=== PATIENT | male | born 1955 | race Caucasian/White ===

== ENCOUNTER 2023-10-23 13:13 | Emergency (ER) | payer OTHER ==
[2023-10-23 14:10] LABS: BASOPHILS PERCENT AUTO 0.5 % (0.0-1.0); EOSINOPHILS ABSOLUTE AUTO 0.1 K/mm3 (0.0-0.4); EOSINOPHILS PERCENT AUTO 0.9 % (0.0-6.0); HEMATOCRIT 48.5 % (42.0-52.0); HEMOGLOBIN 16.5 gm/dl (14.0-18.0); IMMATURE GRAN ABSOLUTE AUTO 0.08 K/mm3 (0.00-0.05); IMMATURE GRAN PERCENT AUTO 1.1 % (0.0-0.4); LYMPHOCYTES ABSOLUTE AUTO 1.1 K/mm3 (1.0-4.8); LYMPHOCYTES PERCENT AUTO 14.4 % (24.0-44.0); MEAN CORPUSCULAR HEMOGLOBIN 29.7 pg (28.0-32.0); MEAN CORPUSCULAR VOLUME 87.2 fl (83.0-99.0); MEAN PLATELET VOLUME 9.2 fl (9.4-12.4); MONOCYTES ABSOLUTE AUTO 0.3 K/mm3 (0.0-0.8); MONOCYTES PERCENT AUTO 4.1 % (0.0-8.0); PLATELET COUNT,PLT 160 K/mm3 (150-400); RED BLOOD CELL COUNT 5.56 M/mm3 (4.52-5.90); WHITE BLOOD CELL COUNT,WBC 7.56 K/mm3 (3.9-11.3)
[2023-10-23 14:50] LABS: A/G RATIO 0.9 (1-2); ALBUMIN 3.5 g/dl (3.4-5.0); BILIRUBIN TOTAL 0.8 mg/dL (0.2-1.0); C-REACTIVE PROTEIN 0.17 mg/dL (<0.30); CREATININE 1.2 mg/dL (0.7-1.3); EST CRCL DRUG DOSING (CG) 71.39 mL/min; MAGNESIUM 1.9 mg/dL (1.8-2.4); PROTEIN TOTAL,TP 7.6 g/dl (6.4-8.2)
== END 2023-10-23 15:20 | disposition home or self-care (01) ==
LOC: JD.ED 13:13
DX: R06.02 Shortness of breath (principal); E11.65 Type 2 diabetes mellitus with hyperglycemia; I10 Essential (primary) hypertension; Z79.4 Long term (current) use of insulin
CPT/HCPCS: 36415; 71046; 71046-26; 80053; 83735; 83880; 84484; 85025; 85379; 86140; 93005; 93010; 99284; 99285

== ENCOUNTER 2023-10-25 20:05 | Emergency (ER) | payer OTHER ==
[2023-10-25] MEDS ORDERED: Sodium Chloride 0.9% 10 ML Syringe FLUSH PRN (20:34)
[2023-10-25 21:01] LABS: BASOPHILS ABSOLUTE AUTO 0.1 K/mm3 (0.0-0.2); BASOPHILS PERCENT AUTO 0.8 % (0.0-1.0); EOSINOPHILS ABSOLUTE AUTO 0.2 K/mm3 (0.0-0.4); EOSINOPHILS PERCENT AUTO 2.3 % (0.0-6.0); HEMATOCRIT 44.2 % (42.0-52.0); HEMOGLOBIN 15.2 gm/dl (14.0-18.0); IMMATURE GRAN ABSOLUTE AUTO 0.07 K/mm3 (0.00-0.05); IMMATURE GRAN PERCENT AUTO 0.9 % (0.0-0.4); LYMPHOCYTES PERCENT AUTO 25.8 % (24.0-44.0); MEAN CORPUSCULAR HEMOGLOBIN 29.9 pg (28.0-32.0); MEAN CORPUSCULAR HGB CONC 34.4 g/dl (32.0-36.0); MONOCYTES ABSOLUTE AUTO 0.6 K/mm3 (0.0-0.8); MONOCYTES PERCENT AUTO 7.5 % (0.0-8.0); NEUTROPHILS ABSOLUTE AUTO 4.9 K/mm3 (1.8-7.7); NEUTROPHILS PERCENT AUTO 62.7 % (41.0-71.0); PLATELET COUNT,PLT 158 K/mm3 (150-400); RED BLOOD CELL COUNT 5.08 M/mm3 (4.52-5.90); WHITE BLOOD CELL COUNT,WBC 7.86 K/mm3 (3.9-11.3)
[2023-10-25] MEDS: LORazepam 2 MG/ML SDV IVPUSH ONE ×2 (21:21→22:31)
[2023-10-25 21:29] LABS: A/G RATIO 0.8 (1-2); ALBUMIN 3.1 g/dl (3.4-5.0); ANION GAP 13.7 (5-15); BILIRUBIN TOTAL 0.6 mg/dL (0.2-1.0); BUN/CREATININE RATIO 22.7 (14-18); C-REACTIVE PROTEIN 0.35 mg/dL (<0.30); CALCIUM 8.8 mg/dL (8.5-10.1); CREATININE 1.1 mg/dL (0.7-1.3); EST CRCL DRUG DOSING (CG) 80.01 mL/min; POTASSIUM,K 4.7 mEq/L (3.5-5.1)
[2023-10-25] MEDS: Iopamidol 755 Mg/ML 100 ML Bottle IVPUSH ONE (22:33)
[2023-10-25] MEDS: Sodium Chloride 0.9% 10 ML Syringe FLUSH PRN (22:35)
[2023-10-25] MEDS ORDERED: Sodium Chloride 0.9% 100 ML IV SCH (22:45)
[2023-10-25] MEDS: Cephalexin 500 MG Cap PO ONE (23:54)
== END 2023-10-25 23:59 ==
LOC: JD.ED 20:05
DX: F41.9 Anxiety disorder, unspecified (principal); R06.02 Shortness of breath; L03.032 Cellulitis of left toe; E11.65 Type 2 diabetes mellitus with hyperglycemia; F17.210 Nicotine dependence, cigarettes, uncomplicated; I25.2 Old myocardial infarction; I10 Essential (primary) hypertension; E78.00 Pure hypercholesterolemia, unspecified; E66.9 Obesity, unspecified; Z79.4 Long term (current) use of insulin; Z91.048 Other nonmedicinal substance allergy status; Z95.5 Presence of coronary angioplasty implant and graft; Z79.899 Other long term (current) drug therapy; Z68.33 Body mass index [BMI] 33.0-33.9, adult
CPT/HCPCS: 36415; 71275; 73630; 80053; 83735; 83880; 84484; 85025; 86140; 93005; 96374; 96376; 99285; A9270; J2060; J3490; Q9967

== ENCOUNTER 2023-11-02 01:34 | Emergency (ER) | payer OTHER ==
[2023-11-02 02:20] LABS: BASOPHILS ABSOLUTE AUTO 0.1 K/mm3 (0.0-0.2); BASOPHILS PERCENT AUTO 0.6 % (0.0-1.0); EOSINOPHILS ABSOLUTE AUTO 0.2 K/mm3 (0.0-0.4); EOSINOPHILS PERCENT AUTO 2.8 % (0.0-6.0); HEMATOCRIT 46.9 % (42.0-52.0); HEMOGLOBIN 15.8 gm/dl (14.0-18.0); IMMATURE GRAN ABSOLUTE AUTO 0.04 K/mm3 (0.00-0.05); IMMATURE GRAN PERCENT AUTO 0.5 % (0.0-0.4); LYMPHOCYTES PERCENT AUTO 24.7 % (24.0-44.0); MEAN CORPUSCULAR HEMOGLOBIN 29.2 pg (28.0-32.0); MEAN CORPUSCULAR HGB CONC 33.7 g/dl (32.0-36.0); MEAN CORPUSCULAR VOLUME 86.5 fl (83.0-99.0); MEAN PLATELET VOLUME 8.7 fl (9.4-12.4); MONOCYTES ABSOLUTE AUTO 0.5 K/mm3 (0.0-0.8); MONOCYTES PERCENT AUTO 6.3 % (0.0-8.0); NEUTROPHILS ABSOLUTE AUTO 5.2 K/mm3 (1.8-7.7); NEUTROPHILS PERCENT AUTO 65.1 % (41.0-71.0); PLATELET COUNT,PLT 158 K/mm3 (150-400); RED BLOOD CELL COUNT 5.42 M/mm3 (4.52-5.90); WHITE BLOOD CELL COUNT,WBC 7.99 K/mm3 (3.9-11.3)
[2023-11-02 02:37] LABS: APPEARANCE,URINE CLEAR (Clear); BILIRUBIN,URINE NEGATIVE (Negative); COLOR,URINE YELLOW (Yellow); GLUCOSE,URINE 2+ (Negative); KETONES,URINE TRACE (Negative); LEUKOCYTE ESTERASE,URINE NEGATIVE (Negative); NITRITE,URINE NEGATIVE (Negative); OCCULT BLOOD,URINE NEGATIVE (Negative); PH,URINE 5.5 (5.0-8.0); PROTEIN,URINE 1+ (Negative); UROBILINOGEN,URINE 0.2 (0.2-1.0)
[2023-11-02 02:48] LABS: BACTERIA,URINE RARE /hpf (FEW); EPITHELIAL CELLS,URINE 0-5 /hpf (0-5); HYALINE CASTS,URINE 0-5 /lpf (0-5); MUCUS,URINE FEW /hpf (FEW); RBC,URINE 0-5 /hpf (0-5); WBC,URINE 0-5 /hpf (0-5)
[2023-11-02 02:49] LABS: BARBITURATE SCREEN,URINE NEGATIVE (CUTOFF=200); BENZODIAZEPINES SCREEN,URINE PRESUMPTIVE POSITIVE (CUTOFF=150); BUPRENORPHINE SCREEN,URINE NEGATIVE (CUTOFF=10); METHADONE SCREEN, URINE NEGATIVE (CUT0FF=200); METHAMPHETAMINES SCREEN, URINE NEGATIVE (CUTOFF=500); OXYCODONE SCREEN,URINE NEGATIVE (CUT0FF=100); THC SCREEN,URINE 20 NG/ML NEGATIVE (CUTOFF=50)
[2023-11-02 02:50] LABS: A/G RATIO 0.8 (1-2); ALBUMIN 3.6 g/dl (3.4-5.0); ANION GAP 12.9 (5-15); BILIRUBIN TOTAL 0.8 mg/dL (0.2-1.0); BUN/CREATININE RATIO 17.3 (14-18); CALCIUM 9.2 mg/dL (8.5-10.1); CREATININE 1.1 mg/dL (0.7-1.3); EST CRCL DRUG DOSING (CG) 69.41 mL/min; MAGNESIUM 1.8 mg/dL (1.8-2.4); POTASSIUM,K 3.9 mEq/L (3.5-5.1); TSH 2.56 uIU/mL (0.358-3.74)
[2023-11-02 02:51] LABS: AMPHETAMINES SCREEN, URINE NEGATIVE (CUTOFF=500)
== END 2023-11-02 03:54 | disposition home or self-care (01) ==
LOC: JD.ED 01:34
DX: J96.01 Acute respiratory failure with hypoxia (principal); F41.9 Anxiety disorder, unspecified; I10 Essential (primary) hypertension; I25.2 Old myocardial infarction; Z95.5 Presence of coronary angioplasty implant and graft; E78.00 Pure hypercholesterolemia, unspecified; E10.9 Type 1 diabetes mellitus without complications; Z91.048 Other nonmedicinal substance allergy status; Z79.4 Long term (current) use of insulin; Z79.899 Other long term (current) drug therapy; Z79.82 Long term (current) use of aspirin
CPT/HCPCS: 36415; 71045; 71045-26; 80053; 80306; 81001; 83735; 84443; 85025; 93005; 99284

== ENCOUNTER 2023-11-03 13:42 | Emergency (ER) | payer OTHER ==
[2023-11-03] MEDS ORDERED: Sodium Chloride 0.9% 10 ML Syringe FLUSH PRN (13:51)
[2023-11-03] MEDS: LORazepam 2 MG/ML SDV IVPUSH ONE ×2 (13:56)
[2023-11-03 14:01] LABS: BASOPHILS PERCENT AUTO 0.5 % (0.0-1.0); EOSINOPHILS ABSOLUTE AUTO 0.2 K/mm3 (0.0-0.4); EOSINOPHILS PERCENT AUTO 2.9 % (0.0-6.0); HEMATOCRIT 46.1 % (42.0-52.0); HEMOGLOBIN 16.2 gm/dl (14.0-18.0); IMMATURE GRAN ABSOLUTE AUTO 0.03 K/mm3 (0.00-0.05); IMMATURE GRAN PERCENT AUTO 0.4 % (0.0-0.4); LYMPHOCYTES ABSOLUTE AUTO 1.6 K/mm3 (1.0-4.8); LYMPHOCYTES PERCENT AUTO 21.9 % (24.0-44.0); MEAN CORPUSCULAR HEMOGLOBIN 30.2 pg (28.0-32.0); MEAN CORPUSCULAR HGB CONC 35.1 g/dl (32.0-36.0); MONOCYTES ABSOLUTE AUTO 0.5 K/mm3 (0.0-0.8); MONOCYTES PERCENT AUTO 7.1 % (0.0-8.0); NEUTROPHILS ABSOLUTE AUTO 4.9 K/mm3 (1.8-7.7); NEUTROPHILS PERCENT AUTO 67.2 % (41.0-71.0); PLATELET COUNT,PLT 186 K/mm3 (150-400); RED BLOOD CELL COUNT 5.36 M/mm3 (4.52-5.90); WHITE BLOOD CELL COUNT,WBC 7.32 K/mm3 (3.9-11.3)
[2023-11-03 14:29] LABS: LACTIC ACID 2.5 mmol/L (0.4-2.0)
[2023-11-03 14:35] LABS: A/G RATIO 0.7 (1-2); ALBUMIN 3.4 g/dl (3.4-5.0); ANION GAP 16.7 (5-15); BILIRUBIN TOTAL 0.7 mg/dL (0.2-1.0); BUN/CREATININE RATIO 18.2 (14-18); C-REACTIVE PROTEIN 1.14 mg/dL (<0.30); CALCIUM 9.2 mg/dL (8.5-10.1); CREATININE 1.1 mg/dL (0.7-1.3); EST CRCL DRUG DOSING (CG) 77.89 mL/min; POTASSIUM,K 4.7 mEq/L (3.5-5.1)
[2023-11-03] MEDS: Sodium Chloride 0.9% 500 ML IV ONE (15:45)
[2023-11-03] MEDS: VANCOmycin 2 GM/400 ML 2 GM in Premix Bag 1 BAG IV SCH (15:50)
[2023-11-03] MEDS: Insulin Regular, Human 100 Units/ML 3 ML Vial SUBCUT ONE (17:27)
[2023-11-03 17:31] LABS: HEMOGLOBIN A1C 9.7 %
[2023-11-03 17:47] LABS: BICARBONATE,ARTERIAL 23.9 meq/L (22.0-26.0); O2 SATURATION ARTERIAL 93.6 % (96.0-97.0); PCO2 ARTERIAL 43.2 mmHg (35.0-45.0)
[2023-11-03] MEDS: cefTRIAXone 1 GM in Sodium Chloride 0.9% 100 ML IV ONE (17:49)
[2023-11-03 18:50] LABS: APPEARANCE,URINE CLEAR (Clear); BILIRUBIN,URINE NEGATIVE (Negative); COLOR,URINE YELLOW (Yellow); GLUCOSE,URINE 2+ (Negative); KETONES,URINE TRACE (Negative); LEUKOCYTE ESTERASE,URINE NEGATIVE (Negative); NITRITE,URINE NEGATIVE (Negative); OCCULT BLOOD,URINE NEGATIVE (Negative); PH,URINE 5.5 (5.0-8.0); PROTEIN,URINE TRACE (Negative); UROBILINOGEN,URINE 0.2 (0.2-1.0)
[2023-11-03 19:21] LABS: RBC,URINE 0-5 /hpf (0-5); SQUAMOUS EPITHELIAL CELLS,UR NOT SEEN /hpf (0-5); WBC,URINE 0-5 /hpf (0-5)
[2023-11-03 19:23] LABS: BACTERIA,URINE OCCASIONAL /hpf (FEW); MUCUS,URINE FEW /hpf (FEW)
== END 2023-11-03 18:40 ==
LOC: JD.ED 13:42
DX: R06.02 Shortness of breath (principal); E10.65 Type 1 diabetes mellitus with hyperglycemia; F41.9 Anxiety disorder, unspecified; M86.9 Osteomyelitis, unspecified; E66.9 Obesity, unspecified; E78.00 Pure hypercholesterolemia, unspecified; I10 Essential (primary) hypertension; I25.2 Old myocardial infarction; M19.90 Unspecified osteoarthritis, unspecified site; Z86.16 Personal history of COVID-19; Z95.1 Presence of aortocoronary bypass graft; Z79.4 Long term (current) use of insulin; Z79.82 Long term (current) use of aspirin; Z79.899 Other long term (current) drug therapy; Z88.8 Allergy status to other drugs, medicaments and biological substances
CPT/HCPCS: 36415; 36600; 71045; 73700; 80053; 81001; 82803; 82947; 83036; 83605; 83880; 83930; 84484; 85025; 85652; 86140; 87040; 93005; 96365; 96366; 96367; 96375; 99285; J0696; J1815; J2060; J3370; J3490; J7030

== ENCOUNTER 2023-11-12 18:36 | Emergency (ER) | payer OTHER ==
[2023-11-12] MEDS: Sodium Chloride 0.9% 10 ML Syringe FLUSH PRN (19:20)
[2023-11-12] MEDS ORDERED: Insulin Regular in 0.9 % NACL 100 ML IV SCH (19:30)
[2023-11-12] MEDS: Citalopram 20 MG Tab PO ONE (20:37)
[2023-11-12] MEDS: OLANZapine 10 MG Vial IM ONE (21:21)
[2023-11-12] MEDS: Iopamidol 755 Mg/ML 100 ML Bottle IVPUSH ONE (21:50)
[2023-11-12] MEDS: Sodium Chloride 0.9% 100 ML IV SCH (21:50)
[2023-11-12] MEDS: Enoxaparin 150 MG/1 ML Syringe SUBCUT ONE (23:01)
[2023-11-12] MEDS: Apixaban 5 MG Tab PO ONE (23:01)
== END 2023-11-12 23:07 | disposition home or self-care (01) ==
LOC: JD.ED 18:36
DX: I26.94 Multiple subsegmental thrombotic pulmonary emboli without acute cor pulmonale (principal); I10 Essential (primary) hypertension; E78.00 Pure hypercholesterolemia, unspecified; I25.2 Old myocardial infarction; K21.9 Gastro-esophageal reflux disease without esophagitis; E10.9 Type 1 diabetes mellitus without complications; Z86.16 Personal history of COVID-19; Z95.5 Presence of coronary angioplasty implant and graft; Z91.048 Other nonmedicinal substance allergy status; Z79.4 Long term (current) use of insulin; Z79.899 Other long term (current) drug therapy; Z79.01 Long term (current) use of anticoagulants
CPT/HCPCS: 36415; 71275; 84484; 85379; 93005; 96372; 96374; 99285; A9270; J1650; J2405; J3360; J3490; Q9967; 93010; 99284

== ENCOUNTER 2023-11-18 12:05 | Emergency (ER) | payer OTHER ==
[2023-11-18] MEDS: LORazepam 1 MG Tab PO ONE (13:23)
[2023-11-18 13:48] LABS: BASOPHILS ABSOLUTE AUTO 0.1 K/mm3 (0.0-0.2); BASOPHILS PERCENT AUTO 0.9 % (0.0-1.0); EOSINOPHILS ABSOLUTE AUTO 0.2 K/mm3 (0.0-0.4); EOSINOPHILS PERCENT AUTO 3.2 % (0.0-6.0); HEMATOCRIT 44.6 % (42.0-52.0); HEMOGLOBIN 15.6 gm/dl (14.0-18.0); IMMATURE GRAN ABSOLUTE AUTO 0.04 K/mm3 (0.00-0.05); IMMATURE GRAN PERCENT AUTO 0.7 % (0.0-0.4); LYMPHOCYTES ABSOLUTE AUTO 1.4 K/mm3 (1.0-4.8); LYMPHOCYTES PERCENT AUTO 23.7 % (24.0-44.0); MEAN CORPUSCULAR HEMOGLOBIN 29.5 pg (28.0-32.0); MEAN CORPUSCULAR VOLUME 84.3 fl (83.0-99.0); MEAN PLATELET VOLUME 9.6 fl (9.4-12.4); MONOCYTES ABSOLUTE AUTO 0.4 K/mm3 (0.0-0.8); MONOCYTES PERCENT AUTO 6.5 % (0.0-8.0); NEUTROPHILS ABSOLUTE AUTO 3.7 K/mm3 (1.8-7.7); PLATELET COUNT,PLT 141 K/mm3 (150-400); RED BLOOD CELL COUNT 5.29 M/mm3 (4.52-5.90)
[2023-11-18 14:14] LABS: A/G RATIO 0.9 (1-2); ALBUMIN 3.7 g/dl (3.4-5.0); BILIRUBIN TOTAL 0.7 mg/dL (0.2-1.0); BUN/CREATININE RATIO 17.9 (14-18); CALCIUM 9.5 mg/dL (8.5-10.1); CREATININE 1.4 mg/dL (0.7-1.3); EST CRCL DRUG DOSING (CG) 61.2 mL/min
[2023-11-18] MEDS: Insulin Lispro 100 Unit/ML 3 ML KwikPen SUBCUT ONE (14:40)
== END 2023-11-18 16:30 | disposition home or self-care (01) ==
LOC: JD.ED 12:05
DX: R06.02 Shortness of breath (principal); I10 Essential (primary) hypertension; E78.00 Pure hypercholesterolemia, unspecified; E10.9 Type 1 diabetes mellitus without complications; I25.2 Old myocardial infarction; E66.9 Obesity, unspecified; Z68.35 Body mass index [BMI] 35.0-35.9, adult; Z79.01 Long term (current) use of anticoagulants; Z79.899 Other long term (current) drug therapy; Z86.16 Personal history of COVID-19; Z87.891 Personal history of nicotine dependence; Z88.8 Allergy status to other drugs, medicaments and biological substances
CPT/HCPCS: 36415; 71046; 80053; 82947; 84484; 85025; 93005; 99285; A9270; J1815; 93010; 99283

== ENCOUNTER 2024-02-22 18:44 | Inpatient (IN) | payer OTHER ==
[2024-02-22 20:27] LABS: BASOPHILS PERCENT AUTO 0.3 % (0.0-1.0); EOSINOPHILS ABSOLUTE AUTO 0.1 K/mm3 (0.0-0.4); EOSINOPHILS PERCENT AUTO 1.2 % (0.0-6.0); HEMATOCRIT 45.3 % (42.0-52.0); HEMOGLOBIN 15.2 gm/dl (14.0-18.0); IMMATURE GRAN ABSOLUTE AUTO 0.03 K/mm3 (0.00-0.05); IMMATURE GRAN PERCENT AUTO 0.3 % (0.0-0.4); LYMPHOCYTES ABSOLUTE AUTO 1.2 K/mm3 (1.0-4.8); LYMPHOCYTES PERCENT AUTO 13.4 % (24.0-44.0); MEAN CORPUSCULAR HEMOGLOBIN 28.3 pg (28.0-32.0); MEAN CORPUSCULAR HGB CONC 33.6 g/dl (32.0-36.0); MEAN CORPUSCULAR VOLUME 84.2 fl (83.0-99.0); MEAN PLATELET VOLUME 9.1 fl (9.4-12.4); MONOCYTES ABSOLUTE AUTO 0.9 K/mm3 (0.0-0.8); MONOCYTES PERCENT AUTO 10.5 % (0.0-8.0); NEUTROPHILS ABSOLUTE AUTO 6.4 K/mm3 (1.8-7.7); NEUTROPHILS PERCENT AUTO 74.3 % (41.0-71.0); PLATELET COUNT,PLT 147 K/mm3 (150-400); RED BLOOD CELL COUNT 5.38 M/mm3 (4.52-5.90); WHITE BLOOD CELL COUNT,WBC 8.58 K/mm3 (3.9-11.3)
[2024-02-22 20:59] LABS: LACTIC ACID 2.4 mmol/L (0.4-2.0)
[2024-02-22 21:00] LABS: A/G RATIO 0.8 (1-2); ALBUMIN 3.4 g/dl (3.4-5.0); BILIRUBIN TOTAL 1.1 mg/dL (0.2-1.0); C-REACTIVE PROTEIN 8.24 mg/dL (<0.30); CALCIUM 9.4 mg/dL (8.5-10.1); CREATININE 1.5 mg/dL (0.7-1.3); EST CRCL DRUG DOSING (CG) 51.73 mL/min; PROTEIN TOTAL,TP 7.6 g/dl (6.4-8.2)
[2024-02-22] MEDS: Iopamidol 612 MG/ML 30 ML SDV IVPUSH ONE (21:23)
[2024-02-22] MEDS: Sodium Chloride 0.9% 10 ML Syringe FLUSH PRN (21:23)
[2024-02-22] MEDS: Insulin Lispro 100 Unit/ML 3 ML KwikPen SUBCUT ONE (21:49)
[2024-02-22] MEDS: Diphtheria,Pertussis(Acell),Tetanus Vaccine 0.5 ML Syringe IM ONE (21:50)
[2024-02-22] MEDS: cefTRIAXone 2 GM in Sodium Chloride 0.9% 100 ML IV ONE (21:55)
[2024-02-22] MEDS: Sodium Chloride 0.9% 1,000 ML IV SCH ×2 (22:00→22:36)
[2024-02-22] MEDS ORDERED: 50% Dextrose in Water 50 ML Syringe IVPUSH PRN (22:03)
[2024-02-22] MEDS ORDERED: Glucagon,Human Recombinant 1 MG Vial IM PRN (22:03)
[2024-02-22] MEDS: Insulin Lispro 100 Unit/ML 3 ML KwikPen SUBCUT SCH (23:11)
[2024-02-22] MEDS: VANCOmycin 2 GM/400 ML 2 GM in Premix Bag 1 BAG IV ONE (23:34)
[2024-02-23] MEDS: Nitroglycerin 0.4 MG Tab.SL ONE (00:22)
[2024-02-23] MEDS: LORazepam 2 MG/ML SDV IVPUSH ONE (00:25)
[2024-02-23] MEDS: Metoprolol Tartrate 50 MG Tab PO SCH (00:30)
[2024-02-23] MEDS: Nitroglycerin 0.4 MG Tab.SL SL PRN (00:31)
[2024-02-23] MEDS: LORazepam 2 MG/ML SDV ONE (00:31)
[2024-02-23] MEDS: Sodium Chloride 0.9% 1,000 ML IV SCH ×2 (00:40→08:11)
[2024-02-23 05:33] LABS: BASOPHILS PERCENT AUTO 0.4 % (0.0-1.0); EOSINOPHILS ABSOLUTE AUTO 0.1 K/mm3 (0.0-0.4); EOSINOPHILS PERCENT AUTO 1.3 % (0.0-6.0); HEMATOCRIT 41.5 % (42.0-52.0); HEMOGLOBIN 13.8 gm/dl (14.0-18.0); IMMATURE GRAN ABSOLUTE AUTO 0.03 K/mm3 (0.00-0.05); IMMATURE GRAN PERCENT AUTO 0.4 % (0.0-0.4); LYMPHOCYTES ABSOLUTE AUTO 1.2 K/mm3 (1.0-4.8); LYMPHOCYTES PERCENT AUTO 13.5 % (24.0-44.0); MEAN CORPUSCULAR HGB CONC 33.3 g/dl (32.0-36.0); MEAN CORPUSCULAR VOLUME 84.2 fl (83.0-99.0); MEAN PLATELET VOLUME 9.1 fl (9.4-12.4); MONOCYTES PERCENT AUTO 11.5 % (0.0-8.0); NEUTROPHILS ABSOLUTE AUTO 6.2 K/mm3 (1.8-7.7); NEUTROPHILS PERCENT AUTO 72.9 % (41.0-71.0); PLATELET COUNT,PLT 126 K/mm3 (150-400); RED BLOOD CELL COUNT 4.93 M/mm3 (4.52-5.90)
[2024-02-23 05:50] LABS: A/G RATIO 0.8 (1-2); ALBUMIN 2.9 g/dl (3.4-5.0); ANION GAP 10.1 (5-15); BILIRUBIN TOTAL 0.6 mg/dL (0.2-1.0); BUN/CREATININE RATIO 14.2 (14-18); C-REACTIVE PROTEIN 8.97 mg/dL (<0.30); CALCIUM 8.7 mg/dL (8.5-10.1); CREATININE 1.2 mg/dL (0.7-1.3); EST CRCL DRUG DOSING (CG) 70.42 mL/min; POTASSIUM,K 4.1 mEq/L (3.5-5.1); PROTEIN TOTAL,TP 6.7 g/dl (6.4-8.2)
[2024-02-23] MEDS ORDERED: Labetalol 100 MG/20 ML MDV IVPUSH PRN (07:36)
[2024-02-23] MEDS ORDERED: hydrALAZINE 20 MG/ML SDV IVPUSH PRN (07:38)
[2024-02-23] MEDS ORDERED: Ondansetron 4 MG/2 ML SDV IV PRN (07:42)
[2024-02-23] MEDS ORDERED: Acetaminophen 325 MG Tab PO PRN (07:42)
[2024-02-23] MEDS ORDERED: Morphine 2 MG/ML SYRINGE IVPUSH PRN (07:42)
[2024-02-23] MEDS ORDERED: oxyCODONE 5 MG Tab PO PRN (07:42)
[2024-02-23] MEDS ORDERED: Sennosides/Docusate Sodium 50-8.6 MG Tab PO PRN (07:42)
[2024-02-23] MEDS: Apixaban 5 MG Tab PO SCH (09:00)
[2024-02-23] MEDS: LORazepam 2 MG/ML SDV IVPUSH PRN (09:24)
[2024-02-23] MEDS ORDERED: LORazepam 2 MG/ML SDV IVPUSH PRN (09:34)
[2024-02-23 09:44] LABS: INR 1.09; PROTHROMBIN TIME 11.5 SECONDS (9.7-12.0)
[2024-02-23 09:46] LABS: PTT,PARTIAL THROMBOPLSTIN TIME 31.7 SECONDS (21.7-31.4)
[2024-02-23] MEDS: Iopamidol 755 Mg/ML 100 ML Bottle IVPUSH ONE (11:00)
[2024-02-23] MEDS: Sodium Chloride 0.9% 10 ML Syringe FLUSH PRN (11:01)
[2024-02-23] MEDS: Sodium Chloride 0.9% 100 ML IV SCH (11:01)
[2024-02-23] MEDS: Piperacillin/Tazobactam 4.5 GM in Sodium Chloride 0.9% 100 ML IV ONE (12:11)
[2024-02-23] MEDS: VANCOmycin 1.25 GM/250 ML 1.25 GM in Premix Bag 1 BAG IV SCH (12:28)
[2024-02-23] MEDS: Piperacillin/Tazobactam 4.5 GM in Sodium Chloride 0.9% 100 ML IV SCH (19:22)
[2024-02-23] MEDS: traZODone 50 MG Tab PO PRN (23:15)
[2024-02-23] MEDS: Melatonin 3 MG Tab PO PRN (23:15)
[2024-02-24 04:57] LABS: BASOPHILS PERCENT AUTO 0.5 % (0.0-1.0); EOSINOPHILS ABSOLUTE AUTO 0.2 K/mm3 (0.0-0.4); EOSINOPHILS PERCENT AUTO 3.3 % (0.0-6.0); HEMATOCRIT 41.4 % (42.0-52.0); HEMOGLOBIN 13.5 gm/dl (14.0-18.0); IMMATURE GRAN ABSOLUTE AUTO 0.02 K/mm3 (0.00-0.05); IMMATURE GRAN PERCENT AUTO 0.3 % (0.0-0.4); LYMPHOCYTES ABSOLUTE AUTO 1.7 K/mm3 (1.0-4.8); LYMPHOCYTES PERCENT AUTO 22.7 % (24.0-44.0); MEAN CORPUSCULAR HEMOGLOBIN 27.7 pg (28.0-32.0); MEAN CORPUSCULAR HGB CONC 32.6 g/dl (32.0-36.0); MEAN PLATELET VOLUME 9.1 fl (9.4-12.4); MONOCYTES ABSOLUTE AUTO 0.8 K/mm3 (0.0-0.8); MONOCYTES PERCENT AUTO 11.2 % (0.0-8.0); NEUTROPHILS ABSOLUTE AUTO 4.5 K/mm3 (1.8-7.7); PLATELET COUNT,PLT 120 K/mm3 (150-400); RED BLOOD CELL COUNT 4.87 M/mm3 (4.52-5.90); WHITE BLOOD CELL COUNT,WBC 7.32 K/mm3 (3.9-11.3)
[2024-02-24 05:18] LABS: ANION GAP 13.5 (5-15); CALCIUM 8.5 mg/dL (8.5-10.1); EST CRCL DRUG DOSING (CG) 84.5 mL/min; MAGNESIUM 1.9 mg/dL (1.8-2.4); POTASSIUM,K 4.5 mEq/L (3.5-5.1); VANCOMYCIN RANDOM 19.5 ug/mL
[2024-02-24] MEDS: Nicotine 14 MG/24 Hr Patch TRDERM SCH (08:59)
[2024-02-24] MEDS ORDERED: LORazepam 1 MG Tab PO PRN (09:55)
[2024-02-24] MEDS: LORazepam 2 MG/ML SDV IVPUSH ONE (11:46)
[2024-02-24] MEDS: Insulin Lispro 100 Unit/ML 3 ML KwikPen SUBCUT SCH (17:16)
[2024-02-24] MEDS: atorvaSTATin 40 MG Tab PO SCH (20:40)
[2024-02-24] MEDS ORDERED: Metoprolol Tartrate 50 MG Tab PO SCH (21:00)
[2024-02-25 05:04] LABS: BASOPHILS PERCENT AUTO 0.5 % (0.0-1.0); EOSINOPHILS ABSOLUTE AUTO 0.3 K/mm3 (0.0-0.4); EOSINOPHILS PERCENT AUTO 3.9 % (0.0-6.0); HEMATOCRIT 37.2 % (42.0-52.0); HEMOGLOBIN 12.4 gm/dl (14.0-18.0); IMMATURE GRAN ABSOLUTE AUTO 0.01 K/mm3 (0.00-0.05); IMMATURE GRAN PERCENT AUTO 0.2 % (0.0-0.4); LYMPHOCYTES ABSOLUTE AUTO 1.6 K/mm3 (1.0-4.8); LYMPHOCYTES PERCENT AUTO 24.2 % (24.0-44.0); MEAN CORPUSCULAR HEMOGLOBIN 27.8 pg (28.0-32.0); MEAN CORPUSCULAR HGB CONC 33.3 g/dl (32.0-36.0); MEAN CORPUSCULAR VOLUME 83.4 fl (83.0-99.0); MEAN PLATELET VOLUME 9.4 fl (9.4-12.4); MONOCYTES ABSOLUTE AUTO 0.8 K/mm3 (0.0-0.8); MONOCYTES PERCENT AUTO 11.9 % (0.0-8.0); NEUTROPHILS ABSOLUTE AUTO 3.9 K/mm3 (1.8-7.7); NEUTROPHILS PERCENT AUTO 59.3 % (41.0-71.0); PLATELET COUNT,PLT 136 K/mm3 (150-400); RED BLOOD CELL COUNT 4.46 M/mm3 (4.52-5.90); WHITE BLOOD CELL COUNT,WBC 6.49 K/mm3 (3.9-11.3)
[2024-02-25 05:45] LABS: ANION GAP 14.2 (5-15); BUN/CREATININE RATIO 14.4 (14-18); C-REACTIVE PROTEIN 4.52 mg/dL (<0.30); CALCIUM 8.7 mg/dL (8.5-10.1); CREATININE 0.9 mg/dL (0.7-1.3); EST CRCL DRUG DOSING (CG) 93.89 mL/min; POTASSIUM,K 4.2 mEq/L (3.5-5.1)
[2024-02-25] MEDS ORDERED: Albuterol 6.7 GM Inhaler INH PRN (07:33)
[2024-02-25] MEDS: Losartan 25 MG Tab PO SCH (10:43)
[2024-02-25] MEDS: VANCOmycin 1.5 GM/300 ML 1.5 GM in Premix Bag 1 BAG IV SCH (10:48)
[2024-02-25] MEDS: traZODone 50 MG Tab PO PRN (20:01)
[2024-02-25] MEDS: Non-Formulary Medication 1 Each (Tiotropium [Spiriva Handihaler] 18 MCG Cap) INH SCH (20:04)
[2024-02-25] MEDS: atorvaSTATin 20 MG Tab PO SCH (20:06)
[2024-02-26 04:54] LABS: BASOPHILS PERCENT AUTO 0.6 % (0.0-1.0); EOSINOPHILS ABSOLUTE AUTO 0.2 K/mm3 (0.0-0.4); EOSINOPHILS PERCENT AUTO 4.5 % (0.0-6.0); HEMATOCRIT 37.6 % (42.0-52.0); HEMOGLOBIN 12.7 gm/dl (14.0-18.0); IMMATURE GRAN ABSOLUTE AUTO 0.02 K/mm3 (0.00-0.05); IMMATURE GRAN PERCENT AUTO 0.4 % (0.0-0.4); LYMPHOCYTES ABSOLUTE AUTO 1.5 K/mm3 (1.0-4.8); LYMPHOCYTES PERCENT AUTO 31.3 % (24.0-44.0); MEAN CORPUSCULAR HEMOGLOBIN 27.7 pg (28.0-32.0); MEAN CORPUSCULAR HGB CONC 33.8 g/dl (32.0-36.0); MEAN CORPUSCULAR VOLUME 82.1 fl (83.0-99.0); MEAN PLATELET VOLUME 9.1 fl (9.4-12.4); MONOCYTES ABSOLUTE AUTO 0.4 K/mm3 (0.0-0.8); MONOCYTES PERCENT AUTO 8.7 % (0.0-8.0); NEUTROPHILS ABSOLUTE AUTO 2.7 K/mm3 (1.8-7.7); NEUTROPHILS PERCENT AUTO 54.5 % (41.0-71.0); PLATELET COUNT,PLT 135 K/mm3 (150-400); RED BLOOD CELL COUNT 4.58 M/mm3 (4.52-5.90); WHITE BLOOD CELL COUNT,WBC 4.92 K/mm3 (3.9-11.3)
[2024-02-26 05:27] LABS: BUN/CREATININE RATIO 12.5 (14-18); CALCIUM 8.6 mg/dL (8.5-10.1); CREATININE 0.8 mg/dL (0.7-1.3); EST CRCL DRUG DOSING (CG) 105.63 mL/min
[2024-02-26] MEDS: Nicotine 21 MG/24 Hr Patch TRDERM SCH (20:51)
[2024-02-27 05:13] LABS: BUN/CREATININE RATIO 12.9 (14-18); CALCIUM 8.6 mg/dL (8.5-10.1); CREATININE 0.7 mg/dL (0.7-1.3); EST CRCL DRUG DOSING (CG) 120.71 mL/min
[2024-02-27 05:28] LABS: HEMOGLOBIN 13.3 gm/dl (14.0-18.0); MEAN CORPUSCULAR HEMOGLOBIN 27.8 pg (28.0-32.0); MEAN CORPUSCULAR HGB CONC 33.3 g/dl (32.0-36.0); MEAN CORPUSCULAR VOLUME 83.5 fl (83.0-99.0); MEAN PLATELET VOLUME 9.2 fl (9.4-12.4); PLATELET COUNT,PLT 166 K/mm3 (150-400); RED BLOOD CELL COUNT 4.79 M/mm3 (4.52-5.90); WHITE BLOOD CELL COUNT,WBC 4.64 K/mm3 (3.9-11.3)
[2024-02-27] MEDS ORDERED: Ketamine 200 MG/20 ML MDV ONE (08:13)
[2024-02-27] MEDS ORDERED: Propofol 200 MG/20 ML SDV ONE ×3 (08:13→08:14)
[2024-02-27] MEDS ORDERED: Ondansetron 4 MG/2 ML SDV IVPUSH PRN (08:33)
[2024-02-27] MEDS ORDERED: Sodium Chloride 0.9% 10 ML Syringe FLUSH PRN (08:33)
[2024-02-27] MEDS ORDERED: fentaNYL 100 MCG/2 ML SDV IVPUSH PRN (08:33)
[2024-02-27] MEDS ORDERED: HYDROmorphone 0.5 MG/0.5 ML Syringe IVPUSH PRN (08:33)
[2024-02-27] MEDS ORDERED: Lactated Ringers 1,000 ML IV SCH (08:45)
[2024-02-27] MEDS ORDERED: Metoprolol Tartrate 5 MG/5 ML SDV ONE (08:57)
[2024-02-27] MEDS ORDERED: Lactated Ringers 1,000 ML IV ONE (09:00)
[2024-02-27] MEDS ORDERED: Glycopyrrolate 0.2 MG/ML SDV ONE (09:00)
[2024-02-27] MEDS: Lactated Ringers 1,000 ML ONE (09:10)
[2024-02-27] MEDS ORDERED: EPINEPHrine 1 MG/ML SDV ONE (09:22)
[2024-02-27] MEDS ORDERED: Bupivacaine 0.5% 30 ML SDV ONE (09:23)
[2024-02-27] MEDS: Bupivacaine 0.5% 30 ML SDV ONE (10:26)
[2024-02-27] MEDS: Sodium Chloride 0.9% 10 ML Syringe FLUSH SCH (12:11)
[2024-02-27] MEDS: VANCOmycin 1.75 GM/350 ML 1.75 GM in Premix Bag 1 BAG IV SCH (12:12)
[2024-02-27] MEDS: Apixaban 5 MG Tab PO SCH (12:38)
== END 2024-02-27 15:18 | disposition home or self-care (01) | DRG 617 ==
LOC: JD.ED 18:44 → JD.ICU 22:05
PROVIDERS: ADMIT Student in an Organized Health Care Education/Training Program; ATTEND Student in an Organized Health Care Education/Training Program
PROC: 3E0234Z Introduction of Serum, Toxoid and Vaccine into Muscle, Percutaneous Approach (ICD-10-PCS; 2024-02-22)
PROC: 0QBQ0ZZ Excision of Right Toe Phalanx, Open Approach (ICD-10-PCS; 2024-02-24)
PROC: 0Y6R0Z0 Detachment at Right 2nd Toe, Complete, Open Approach (ICD-10-PCS; principal; 2024-02-27 09:15)
DX: E11.69 Type 2 diabetes mellitus with other specified complication (principal); M86.071 Acute hematogenous osteomyelitis, right ankle and foot; I10 Essential (primary) hypertension; E78.5 Hyperlipidemia, unspecified; E66.9 Obesity, unspecified; J44.9 Chronic obstructive pulmonary disease, unspecified; Z86.16 Personal history of COVID-19; E11.65 Type 2 diabetes mellitus with hyperglycemia; Z68.31 Body mass index [BMI] 31.0-31.9, adult; Z91.09 Other allergy status, other than to drugs and biological substances; L97.519 Non-pressure chronic ulcer of other part of right foot with unspecified severity; E11.628 Type 2 diabetes mellitus with other skin complications; E78.00 Pure hypercholesterolemia, unspecified; K21.9 Gastro-esophageal reflux disease without esophagitis; M19.90 Unspecified osteoarthritis, unspecified site; E11.621 Type 2 diabetes mellitus with foot ulcer; G47.30 Sleep apnea, unspecified; F41.9 Anxiety disorder, unspecified; H91.90 Unspecified hearing loss, unspecified ear; H54.7 Unspecified visual loss; L03.031 Cellulitis of right toe; E11.40 Type 2 diabetes mellitus with diabetic neuropathy, unspecified; E11.51 Type 2 diabetes mellitus with diabetic peripheral angiopathy without gangrene; F17.210 Nicotine dependence, cigarettes, uncomplicated; I25.2 Old myocardial infarction; Z95.5 Presence of coronary angioplasty implant and graft; Z79.4 Long term (current) use of insulin; Z23 Encounter for immunization; Z79.01 Long term (current) use of anticoagulants; Z86.711 Personal history of pulmonary embolism; Z89.412 Acquired absence of left great toe; Z79.899 Other long term (current) drug therapy; Z98.890 Other specified postprocedural states
CPT/HCPCS: 36415; 73630; 73701; 80053; 83605; 85025; 86140; 87040 ×2; 90715; J0696; J1815; J3490 ×2; J7030; Q9967; 71045; 71045-26; 75635; 75635-26; 80048; 80202; 82947; 83735; 84100; 84484; 85027; 85610; 85652; 85730; 87641; 93005; 93010; 94760; 99285; A9270-GY; J0171; J0665; J1596; J2060; J2543; J2704; J3372; J7120

== ENCOUNTER 2024-10-27 21:12 | Emergency (ER) | payer OTHER ==
[2024-10-27] MEDS: LORazepam 1 MG Tab PO ONE (22:14)
== END 2024-10-27 23:12 | disposition home or self-care (01) ==
LOC: JD.ED 21:12
DX: F41.0 Panic disorder [episodic paroxysmal anxiety] (principal); I10 Essential (primary) hypertension; E78.00 Pure hypercholesterolemia, unspecified; Z86.16 Personal history of COVID-19; E10.9 Type 1 diabetes mellitus without complications; E66.9 Obesity, unspecified; Z68.33 Body mass index [BMI] 33.0-33.9, adult; Z79.899 Other long term (current) drug therapy; Z79.4 Long term (current) use of insulin; Z91.048 Other nonmedicinal substance allergy status
CPT/HCPCS: 99283; A9270

== ENCOUNTER 2024-10-28 16:56 | Inpatient (IN) | payer OTHER ==
[2024-10-28] MEDS: LORazepam 2 MG/ML SDV IVPUSH ONE (17:15)
[2024-10-28] MEDS: LORazepam 2 MG/ML SDV ONE (17:20)
[2024-10-28 17:30] LABS: BASOPHILS PERCENT AUTO 0.5 % (0.0-1.0); EOSINOPHILS ABSOLUTE AUTO 0.2 K/mm3 (0.0-0.4); EOSINOPHILS PERCENT AUTO 2.7 % (0.0-6.0); HEMATOCRIT 48.1 % (42.0-52.0); HEMOGLOBIN 16.1 gm/dl (14.0-18.0); IMMATURE GRAN ABSOLUTE AUTO 0.02 K/mm3 (0.00-0.05); IMMATURE GRAN PERCENT AUTO 0.3 % (0.0-0.4); LYMPHOCYTES ABSOLUTE AUTO 2.1 K/mm3 (1.0-4.8); LYMPHOCYTES PERCENT AUTO 26.8 % (24.0-44.0); MEAN CORPUSCULAR HEMOGLOBIN 29.5 pg (28.0-32.0); MEAN CORPUSCULAR HGB CONC 33.5 g/dl (32.0-36.0); MEAN CORPUSCULAR VOLUME 88.1 fl (83.0-99.0); MEAN PLATELET VOLUME 9.3 fl (9.4-12.4); MONOCYTES ABSOLUTE AUTO 0.5 K/mm3 (0.0-0.8); MONOCYTES PERCENT AUTO 6.7 % (0.0-8.0); PLATELET COUNT,PLT 199 K/mm3 (150-400); RED BLOOD CELL COUNT 5.46 M/mm3 (4.52-5.90); WHITE BLOOD CELL COUNT,WBC 7.87 K/mm3 (3.9-11.3)
[2024-10-28 17:42] LABS: ALANINE AMINOTRANSFERASE,ALT 73 U/L (16-63); ALBUMIN 3.9 g/dl (3.4-5.0); ALKALINE PHOSPHATASE 117 U/L (46-116); ANION GAP 10.2 (5-15); ASPARTATE AMNIOTRANSFERASE,AST 34 U/L (15-37); BILIRUBIN TOTAL 0.7 mg/dL (0.2-1.0); BLOOD UREA NITROGEN,BUN 21 mg/dL (7-18); BUN/CREATININE RATIO 19.1 (14-18); CALCIUM 9.5 mg/dL (8.5-10.1); CARBON DIOXIDE,CO2 31 mEq/L (21-32); CHLORIDE,CL 102 mEq/L (98-107); CREATINE KINASE,CK 131 U/L (39-308); CREATININE 1.1 mg/dL (0.7-1.3); ESTIMATED GFR 73 mL/min (>60); GLUCOSE RANDOM 164 mg/dL (70-99); MAGNESIUM 1.9 mg/dL (1.8-2.4); POTASSIUM,K 4.2 mEq/L (3.5-5.1); PROTEIN TOTAL,TP 7.9 g/dl (6.4-8.2); SODIUM,NA 139 mEq/L (136-145); TROPONIN I HIGH SENSITIVITY 9 pg/mL (<=76)
[2024-10-28] MEDS ORDERED: Acetaminophen 325 MG Tab PO PRN (18:32)
[2024-10-28] MEDS ORDERED: hydrALAZINE 20 MG/ML SDV IVPUSH PRN (18:34)
[2024-10-28] MEDS ORDERED: ALBUTEROL INH PRN (18:56)
[2024-10-28] MEDS ORDERED: 50% Dextrose in Water 50 ML Syringe IVPUSH PRN (18:56)
[2024-10-28] MEDS ORDERED: Albuterol 6.7 GM Inhaler INH PRN (19:07)
[2024-10-28 19:27] LABS: C-REACTIVE PROTEIN 0.14 mg/dL (<0.30); TSH 2.005 uIU/mL (0.358-3.74)
[2024-10-28] MEDS: Iopamidol 755 Mg/ML 100 ML Bottle IVPUSH ONE (19:44)
[2024-10-28] MEDS: Sodium Chloride 0.9% 100 ML IV SCH (19:44)
[2024-10-28] MEDS: atorvaSTATin 40 MG Tab PO SCH (20:00)
[2024-10-28] MEDS: hydrOXYzine HCl 50 MG Tab PO SCH (20:00)
[2024-10-28] MEDS: Cefepime 2 GM Vial IVPUSH SCH (20:01)
[2024-10-28] MEDS: Aspirin 325 MG Tab.EC PO ONE (20:01)
[2024-10-28] MEDS: Insulin Lispro 100 Unit/ML 3 ML KwikPen SUBCUT SCH (22:01)
[2024-10-29] MEDS: LORazepam 1 MG Tab PO PRN (04:09)
[2024-10-29 04:12] LABS: BASOPHILS PERCENT AUTO 0.5 % (0.0-1.0); EOSINOPHILS ABSOLUTE AUTO 0.3 K/mm3 (0.0-0.4); EOSINOPHILS PERCENT AUTO 4.3 % (0.0-6.0); HEMATOCRIT 44.4 % (42.0-52.0); HEMOGLOBIN 14.9 gm/dl (14.0-18.0); IMMATURE GRAN ABSOLUTE AUTO 0.02 K/mm3 (0.00-0.05); IMMATURE GRAN PERCENT AUTO 0.3 % (0.0-0.4); LYMPHOCYTES ABSOLUTE AUTO 2.3 K/mm3 (1.0-4.8); LYMPHOCYTES PERCENT AUTO 37.2 % (24.0-44.0); MEAN CORPUSCULAR HEMOGLOBIN 29.2 pg (28.0-32.0); MEAN CORPUSCULAR HGB CONC 33.6 g/dl (32.0-36.0); MEAN CORPUSCULAR VOLUME 86.9 fl (83.0-99.0); MEAN PLATELET VOLUME 9.4 fl (9.4-12.4); MONOCYTES ABSOLUTE AUTO 0.6 K/mm3 (0.0-0.8); NEUTROPHILS PERCENT AUTO 48.7 % (41.0-71.0); PLATELET COUNT,PLT 149 K/mm3 (150-400); RED BLOOD CELL COUNT 5.11 M/mm3 (4.52-5.90)
[2024-10-29 06:36] LABS: ALBUMIN 3.5 g/dl (3.4-5.0); ANION GAP 17.4 (5-15); BILIRUBIN TOTAL 0.5 mg/dL (0.2-1.0); CREATININE 0.9 mg/dL (0.7-1.3); EST CRCL DRUG DOSING (CG) 93.89 mL/min; POTASSIUM,K 4.4 mEq/L (3.5-5.1); PROTEIN TOTAL,TP 7.2 g/dl (6.4-8.2)
[2024-10-29] MEDS: Aspirin 81 MG Tab.Chew PO SCH (08:17)
[2024-10-29] MEDS: Enoxaparin 40 MG/0.4 ML Syringe SUBCUT SCH (08:17)
[2024-10-29] MEDS: Apixaban 5 MG Tab PO SCH (09:45)
[2024-10-29] MEDS ORDERED: Midazolam 1 MG/ML 5 ML SDV ONE (11:00)
[2024-10-29] MEDS ORDERED: Ketamine 500 mg/10 ML MDV ONE (11:00)
[2024-10-29] MEDS ORDERED: Lactated Ringers 1,000 ML ONE (12:39)
[2024-10-29] MEDS: Sodium Chloride 0.9% 1,000 ML IV ONE (14:41)
[2024-10-29] MEDS: Sodium Chloride 0.9% 1,000 ML IV SCH (17:13)
[2024-10-29] MEDS: Clopidogrel 75 MG Tab PO SCH (17:30)
[2024-10-30 05:54] LABS: BASOPHILS PERCENT AUTO 0.4 % (0.0-1.0); EOSINOPHILS ABSOLUTE AUTO 0.2 K/mm3 (0.0-0.4); EOSINOPHILS PERCENT AUTO 3.5 % (0.0-6.0); HEMATOCRIT 39.7 % (42.0-52.0); HEMOGLOBIN 13.6 gm/dl (14.0-18.0); IMMATURE GRAN ABSOLUTE AUTO 0.01 K/mm3 (0.00-0.05); IMMATURE GRAN PERCENT AUTO 0.2 % (0.0-0.4); LYMPHOCYTES ABSOLUTE AUTO 1.3 K/mm3 (1.0-4.8); LYMPHOCYTES PERCENT AUTO 27.4 % (24.0-44.0); MEAN CORPUSCULAR HEMOGLOBIN 29.8 pg (28.0-32.0); MEAN CORPUSCULAR HGB CONC 34.3 g/dl (32.0-36.0); MEAN CORPUSCULAR VOLUME 86.9 fl (83.0-99.0); MEAN PLATELET VOLUME 9.4 fl (9.4-12.4); MONOCYTES ABSOLUTE AUTO 0.4 K/mm3 (0.0-0.8); MONOCYTES PERCENT AUTO 8.5 % (0.0-8.0); NEUTROPHILS ABSOLUTE AUTO 2.7 K/mm3 (1.8-7.7); PLATELET COUNT,PLT 127 K/mm3 (150-400); RED BLOOD CELL COUNT 4.57 M/mm3 (4.52-5.90); WHITE BLOOD CELL COUNT,WBC 4.57 K/mm3 (3.9-11.3)
[2024-10-30 06:16] LABS: ALBUMIN 3.2 g/dl (3.4-5.0); BILIRUBIN TOTAL 0.8 mg/dL (0.2-1.0); BUN/CREATININE RATIO 16.3 (14-18); CALCIUM 8.2 mg/dL (8.5-10.1); CREATININE 0.8 mg/dL (0.7-1.3); EST CRCL DRUG DOSING (CG) 105.63 mL/min; PROTEIN TOTAL,TP 6.4 g/dl (6.4-8.2)
[2024-10-30] MEDS: Enoxaparin 40 MG/0.4 ML Syringe SUBCUT SCH (10:25)
[2024-10-30] MEDS: busPIRone 15 MG Tab PO SCH (10:26)
== END 2024-10-30 13:25 | disposition home or self-care (01) | DRG 65 ==
LOC: JD.ED 16:56 → JD.MS 18:32
PROVIDERS: ADMIT Family Medicine; ATTEND Family Medicine
DX: I63.9 Cerebral infarction, unspecified (principal); G81.94 Hemiplegia, unspecified affecting left nondominant side; I65.23 Occlusion and stenosis of bilateral carotid arteries; E10.9 Type 1 diabetes mellitus without complications; I10 Essential (primary) hypertension; E78.00 Pure hypercholesterolemia, unspecified; J44.9 Chronic obstructive pulmonary disease, unspecified; F41.9 Anxiety disorder, unspecified; Z91.09 Other allergy status, other than to drugs and biological substances; R29.810 Facial weakness; Z68.34 Body mass index [BMI] 34.0-34.9, adult; R47.81 Slurred speech; H91.90 Unspecified hearing loss, unspecified ear; H54.7 Unspecified visual loss; G47.30 Sleep apnea, unspecified; K21.9 Gastro-esophageal reflux disease without esophagitis; M19.90 Unspecified osteoarthritis, unspecified site; F17.210 Nicotine dependence, cigarettes, uncomplicated; L08.9 Local infection of the skin and subcutaneous tissue, unspecified; I25.10 Atherosclerotic heart disease of native coronary artery without angina pectoris; E10.40 Type 1 diabetes mellitus with diabetic neuropathy, unspecified; E10.51 Type 1 diabetes mellitus with diabetic peripheral angiopathy without gangrene; E66.9 Obesity, unspecified; R29.703 NIHSS score 3; Z91.048 Other nonmedicinal substance allergy status; Z99.81 Dependence on supplemental oxygen; I25.2 Old myocardial infarction; Z95.5 Presence of coronary angioplasty implant and graft; Z87.81 Personal history of (healed) traumatic fracture; Z86.16 Personal history of COVID-19; Z98.890 Other specified postprocedural states; Z86.718 Personal history of other venous thrombosis and embolism; Z68.33 Body mass index [BMI] 33.0-33.9, adult; Z79.4 Long term (current) use of insulin; Z79.02 Long term (current) use of antithrombotics/antiplatelets; Z79.899 Other long term (current) drug therapy; Z79.1 Long term (current) use of non-steroidal anti-inflammatories (NSAID); Z79.01 Long term (current) use of anticoagulants
CPT/HCPCS: 36415; 70450; 71045; 80053; 82550; 83735; 84443; 84484; 85025; 85652; 86140; 93005; 96374; 99285; J2060; 70496; 70496-26; 70498; 70498-26; 70551; 70551-26; 80061; 82947; 83036; 93010; 94760; 94761; 97162-GP; 97530-GP; A9270-GY; J0692; J1650; J1815; J2250; J3490; J7030; J7120; Q9967

== ENCOUNTER 2024-11-04 15:34 | Emergency (ER) | payer OTHER ==
[2024-11-04] MEDS: LORazepam 1 MG Tab PO ONE (17:00)
== END 2024-11-04 17:17 | disposition home or self-care (01) ==
LOC: JD.ED 15:34
DX: F41.9 Anxiety disorder, unspecified (principal); I10 Essential (primary) hypertension; E78.00 Pure hypercholesterolemia, unspecified; E11.9 Type 2 diabetes mellitus without complications; E66.9 Obesity, unspecified; Z68.38 Body mass index [BMI] 38.0-38.9, adult; F17.200 Nicotine dependence, unspecified, uncomplicated; Z79.4 Long term (current) use of insulin; Z79.899 Other long term (current) drug therapy; Z88.8 Allergy status to other drugs, medicaments and biological substances
CPT/HCPCS: 99283; A9270